=== PATIENT | female | born 1950 | race Caucasian/White ===

== ENCOUNTER 2020-05-21 11:30 | Emergency (ER) | payer OTHER, MEDICARE ==
[~2020-05-21] VITALS: Ht 157.5 cm; Wt 54.4 kg
[2020-05-21 11:30] VITALS: BP_SYST 142
[2020-05-21] MEDS ORDERED: ACETAMINOPHEN 500 MG TABLET PO ONE (13:30)
[2020-05-21 14:30] VITALS: BP_SYST 139
== END 2020-05-21 14:32 | disposition home or self-care (01) ==
LOC: SED 11:30
DX: S46.911A Strain of unspecified muscle, fascia and tendon at shoulder and upper arm level, right arm, initial encounter (principal); V49.9XXA Car occupant (driver) (passenger) injured in unspecified traffic accident, initial encounter; Y93.89 Activity, other specified; Y92.413 State road as the place of occurrence of the external cause; Y99.8 Other external cause status
CPT/HCPCS: 72040-TC; 99284